=== PATIENT | female | born 1980 | race Caucasian/White ===

== ENCOUNTER 2017-05-18 17:19 | Emergency (ER) | payer SELFPAY ==
[2017-05-18 17:25] VITALS: BP 142/88; BMI 40.7
--- NOTE | 2017-05-18 18:16 | DR.GENAD ---
HPI - PCP Primary Care Physician: NFD - Complaint/Symptoms Chief Complaint Doctors Comments: PATIENT HAVE URINARY SYNTOMS THAT IS GETTING WORSE. NO FEVER. Chief Complaint:: PATIENT STATED SHE THINKS SHE HAS A KIDNEY INFECTION OR A UTI. ALSO DOES NOT KNOW IF SHE IS - Nurses notes reviewed Nurses Notes Review: Yes - Source History Provided: Patient - Mode of Arrival Mode of Arrival: Ambulatory - Timing Onset of Chief Complaint: 05/14/17 Came on: Suddenly - Duration Duration: Constant Duration: Days - Severity Severity: Moderate PMH - PMH Past Medical History: No Past Surgical History: Yes Surgical History: - Family History History of Family Medical Conditions: No - Social History Does patient currently use any type of tobacco product: No Have you used tobacco products in the last 12 months: No Type of Tobacco Use: None Does any household member use tobacco: No Alcohol Use: None Do you use any recreational Drugs:: No Lives With: Family Lives Where: Home - infectious screening In the last 2 months have you had wt loss of >10#?: NO Have you had fever, night sweats or hemotysis?: No Have you traveled outside the country in the last 6 months?: No Isolation: Standard ROS - Review of Systems Constitutional: No Symptoms Reported Eyes: No Symptoms Reported ENTM: No Symptoms Reported Respiratoy: No Symptoms Reported Cardiovascular: No Symptoms Reported Gastrointestinal/Abdominal: No Symptoms Reported Genitourinary: Dysuria Neurological: No Symptoms Reported Musculoskeletal: No Symptoms Reported Integumentary: No Symptoms Reported Hematologic/Lymphatic: No Symptoms Reported Endocrine: No Symptoms Reported PE - Vital Signs Vitals: Temperature 98.5 F Pulse Rate 83 Respiratory Rate 16 Blood Pressure 142/88 O2 Sat by Pulse Oximetry 99 - General Limitations: No Limitations General Appearance: Alert - Head Head Exam: Normal Inspection - Eyes Eye exam: Normal Appearance - ENT ENT Exam: Normal External Ear Exam External Ear Exam: Normal External Inspection Nose Exam: Normal Nose Exam Mouth Exam: Normal Inspection Throat Exam: Normal Inspection - Neck Neck Exam: Trachea Midline - Chest Chest Inspection: Symmetric Chest Wall Rise - Respiratory Respiratory Exam: Normal Lung Sounds Bilat Respiratory Exam: Bilateral Clear to Auscultation - Cardiovascular Cardiovascular Exam: Regular Rate, Normal Rhythm, Normal Heart Sounds - Abdominal Exam Abdominal Exam: Normal Bowel Sounds, Soft, Tenderness Abdominal Tenderness: Other (BLADDER PRERSSURE) - Extremities Extremities Exam: Normal Inspection - Back Back Exam: Normal Inspection - Neurologic Neurological Exam: Alert, Oriented X3 - Psychiatric Psychiatric Exam: Normal Affect, Normal Mood - Skin Skin Exam: Normal Color MDM - Differential Diagnosis Differential Diagnosis: UTI, LATE PERIOD. Course - Treatment Treatment: SEE ORDERS. - Education/Counseling Education/Counseling: Patient, Education Educated On: Diagnosis, Needs for Follow Up ROR - Labs Reviewed Laboratory Results Reviewed?: Yes Result Diagrams: 05/18/17 18:23 05/18/17 18:23 Laboratory: WBC 7.3 X10^3/uL (3.6-10.0) 05/18/17 18:23 RBC 4.86 X10^6/uL (3.5-5.4) 05/18/17 18:23 Hgb 13.2 g/dL (12.0-16.0) 05/18/17 18:23 Hct 39.3 % (36.0-47.0) 05/18/17 18:23 MCV 80.8 fL (80.0-100.0) 05/18/17 18: MCH 27.1 pg (27.0-34.0) 05/18/17 18: MCHC 33.5 g/dL (33.0-35.0) 05/18/17 18: RDW 14.9 % (11.6-16.5) 05/18/17 18: Plt Count 264 X10^3/uL (150.0-450.0) 05/18/17 18:23 MPV 8.5 fL (7.4-11.0) 05/18/17 18:23 Neut % 64.2 % (42.0-75.0) 05/18/17 18:23 Lymph % 23.2 % (21.0-51.0) 05/18/17 18:23 [place] % 6.9 % (0.0-13.0) 05/18/17 18:23 Eos % 4.9 % (0.9-2.9) H 05/18/17 18:23 Baso % 0.8 % (0.2-1.0) 05/18/17 18:23 Neut # 4.7 x10^3/uL (2.2-4.8) 05/18/17 18:23 Lymph # 1.7 X10^3/uL (1.3-2.9) 05/18/17 18:23 [place] # 0.5 x10^3/uL (0.3-0.8) 05/18/17 18:23 Eos # 0.4 x10^3/uL (0.0-0.2) H 05/18/17 18:23 Baso # 0.1 X10^3/uL (0.0-0.1) 05/18/17 18:23 Absolute Nucleated RBC 0.0 /100WBC 05/18/17 18:23 Sodium 140 mmol/L (136-145) 05/18/17 18:23 Corrected Sodium TNP 05/18/17 18:23 Potassium 4.0 mmol/L (3.5-5.1) 05/18/17 18:23 Chloride 105 mmol/L (98-107) 05/18/17 18:23 Carbon Dioxide 27.8 mmol/L (21-32) 05/18/17 18:23 BUN 16 mg/dL (7-18) 05/18/17 18:23 Creatinine 0.85 mg/dL (0.55-1.02) 05/18/17 18:23 Est GFR (MDRD) Af Amer > 60 (>60) 05/18/17 18:23 Est GFR (MDRD) Non-Af > 60 (>60) 05/18/17 18:23 Glucose 96 mg/dL (65-99) 05/18/17 18:23 Calcium 8.6 mg/dL (8.5-10.1) 05/18/17 18:23 Corrected Calcium 9.2 mg/dL (8.5-10.1) 05/18/17 18:23 Total Bilirubin 0.30 mg/dL (0.2-1.0) 05/18/17 18:23 AST 17 Units/L (15-37) 05/18/17 18:23 ALT 36 Units/L (12-78) 05/18/17 18:23 Alkaline Phosphatase 82 Units/L (46-116) 05/18/17 18:23 Total Protein 7.5 g/dL (6.4-8.2) 05/18/17 18:23 Albumin 3.2 g/dL (3.4-5.0) L 05/18/17 18:23 Globulin 4.3 g/dL (2.5-4.5) 05/18/17 18:23 Albumin/Globulin Ratio 0.7 Ratio (1.1-2.1) L 05/18/17 18:23 HCG, Qual Negative <10 mIU/mL 05/18/17 18:23 Specimen Type Clean catch urine 05/18/17 18:17 Urine Color Yellow (YELLOW) 05/18/17 18:17 Urine Appearance Cloudy (CLEAR) 05/18/17 18:17 Urine pH 6.0 (5.0 - 8.0) 05/18/17 18:17 Ur Specific [place] 1.015 (1.000-1.030) 05/18/17 18:17 Urine Protein Negative (NEGATIVE) 05/18/17 18:17 Urine Glucose (UA) Negative (NEGATIVE) 05/18/17 18:17 Urine Ketones Negative (NEGATIVE) 05/18/17 18:17 Urine Occult Blood 2+ (NEGATIVE) 05/18/17 18:17 Urine Nitrite Negative (NEGATIVE) 05/18/17 18:17 Urine Bilirubin Negative (NEGATIVE) 05/18/17 18:17 Urine Urobilinogen Normal (NORMAL) 05/18/17 18:17 Ur Leukocyte Esterase 3+ (NEGATIVE) 05/18/17 18:17 Urine RBC 2-6 /HPF (NEGATIVE) 05/18/17 18:17 Urine WBC 50-60 /HPF (NEGATIVE) 05/18/17 18:17 Ur Squamous Epith Cells Moderate /HPF (NEGATIVE) 05/18/17 18:17 Urine Bacteria 2+ /HPF (NEGATIVE) 05/18/17 18:17 Ur Culture Indicated? Yes/culture set up 05/18/17 18:17 - Diagnosis Discharge Problem: UTI (urinary tract infection) Qualifiers: Urinary tract infection type: site unspecified Hematuria presence: without hematuria Qualified Code(s): N39.0 - Urinary tract infection, site not specified - Discharge Plan Disposition: 01 HOME, SELF-CARE Condition: Stable Prescriptions: Sulfamethoxazole-Trimethoprim [BACTRIM DS TAB 800/160 MG *] 1 tab PO BID #20 tab - Follow ups/Referrals Follow ups/Referrals: NFD,None [Primary Care Provider] - 3 days - Instructions Instructions: Acute Urinary Retention, Female Additional Instructions: RETURN TO ED IF WORSE.
[2017-05-18 18:27] LABS: BILIRUBIN,URINE NEGATIVE (NEGATIVE); BLOOD/HEMOGLOBIN,URINE 2+ (NEGATIVE); GLUCOSE, URINE NEGATIVE (NEGATIVE); KETONES,URINE NEGATIVE (NEGATIVE); LEUKOCYTE ESTERASE ,URINE 3+ (NEGATIVE); NITRITES,URINE NEGATIVE (NEGATIVE); PROTEIN,URINE NEGATIVE (NEGATIVE); UROBILINOGEN,URINE NORMAL (NORMAL)
[2017-05-18 18:37] LABS: APPEARANCE,URINE CLOUDY (CLEAR); BACTERIA,URINE 2+ /HPF (NEGATIVE); COLOR,URINE YELLOW (YELLOW); SQUAMOUS EPITHELIAL CELL,UR MODERATE /HPF (NEGATIVE)
[2017-05-18 18:41] LABS: BASOPHILS # (AUTO) 0.1 X10^3/uL (0.0-0.1); BASOPHILS % (AUTO) 0.8 % (0.2-1.0); EOSINOPHILS # (AUTO) 0.4 x10^3/uL (0.0-0.2); EOSINOPHILS % (AUTO) 4.9 % (0.9-2.9); HEMATOCRIT 39.3 % (36.0-47.0); HEMOGLOBIN 13.2 g/dL (12.0-16.0); LYMPHOCYTES # (AUTO) 1.7 X10^3/uL (1.3-2.9); LYMPHOCYTES % (AUTO) 23.2 % (21.0-51.0); MEAN CORPUSCULAR HEMOGLOBIN 27.1 pg (27.0-34.0); MEAN CORPUSCULAR HGB CONC 33.5 g/dL (33.0-35.0); MEAN CORPUSCULAR VOLUME 80.8 fL (80.0-100.0); MEAN PLATELET VOLUME 8.5 fL (7.4-11.0); MONOCYTES # (AUTO) 0.5 x10^3/uL (0.3-0.8); MONOCYTES % (AUTO) 6.9 % (0.0-13.0); NEUTROPHILS # (AUTO) 4.7 x10^3/uL (2.2-4.8); NEUTROPHILS % (AUTO) 64.2 % (42.0-75.0); PLATELET COUNT 264 X10^3/uL (150.0-450.0); RED BLOOD COUNT 4.86 X10^6/uL (3.5-5.4); RED CELL DISTRIBUTION WIDTH 14.9 % (11.6-16.5); WHITE BLOOD COUNT 7.3 X10^3/uL (3.6-10.0)
[2017-05-18 18:53] LABS: SERUM PREGNANCY TEST, QUAL NEGATIVE <10 mIU/mL
[2017-05-18 18:56] LABS: ALANINE AMINOTRANSFERASE 36 Units/L (12-78); ALBUMIN 3.2 g/dL (3.4-5.0); ALKALINE PHOSPHATASE 82 Units/L (46-116); ASPARTATE AMINO TRANSFERASE 17 Units/L (15-37); BLOOD UREA NITROGEN 16 mg/dL (7-18); CALCIUM 8.6 mg/dL (8.5-10.1); CARBON DIOXIDE 27.8 mmol/L (21-32); CHLORIDE 105 mmol/L (98-107); COR CA(FOR HYPOALB) 9.2 mg/dL (8.5-10.1); CREATININE 0.85 mg/dL (0.55-1.02); GLUCOSE 96 mg/dL (65-99); SODIUM 140 mmol/L (136-145); TOTAL PROTEIN 7.5 g/dL (6.4-8.2); eGFR BLACK RACES > 60 (>60); eGFR NON BLACK RACES > 60 (>60)
[2017-05-18] MEDS ORDERED: BACTRIM DS TAB PO ONE ×3 (19:14→19:28)
== END 2017-05-18 19:32 | disposition home or self-care (01) ==
LOC: ER 17:39
DX: N39.0 Urinary tract infection, site not specified (principal); B96.29 Other Escherichia coli [E. coli] as the cause of diseases classified elsewhere
CPT/HCPCS: 36415; 80053; 81001; 84703; 85025; 87086; 87088; 87186; 99282